=== PATIENT | female | born 1935 | race Caucasian/White ===

== ENCOUNTER 2018-04-15 08:34 | Emergency (ER) | payer MEDICARE, OTHER ==
[2018-04-15 08:48] VITALS: BP 167/85
--- NOTE | 2018-04-15 08:55 | EDM.PDOC ---
ED HPI GENERAL MEDICAL PROBLEM - General Chief Complaint: Cardiovascular Problem Stated Complaint: [facility] Time Seen by Provider: 04/15/18 08:54 - History of Present Illness INITIAL COMMENTS - FREE TEXT/NARRATIVE: 83-year-old female presents emergency room with lightheadedness. The patient has had on-and-off problems with this for almost last 2 years. She recently had her metoprolol long-acting stopped she was taking 25 mg in the morning and 25 mg at noon. She has not had any associated chest pain worsening edema or shortness of breath. The patient awoke. And she was a little unsteady her niece assisted her getting into a wheeled dining room table chair and she was wheeled out to the dining room she remained lightheaded. She was too weak to attempt standing on her own. She was brought into the emergency room she is not experiencing chest pain chest pressure breathing difficulties. - Related Data Allergies Allergy/AdvReac Type Severity Reaction Status Date / Time morphine AdvReac Vomiting Verified 04/15/18 08:52 Home Meds: Home Meds Albuterol Sulfate [Proventil Hfa] 6.7 gm IH Q4HR PRN 07/23/16 [History] LORazepam 1 mg PO BEDTIME PRN 07/23/16 [History] Losartan [Cozaar] 50 mg PO DAILY 07/23/16 [History] Melatonin 3 mg PO BEDTIME 07/23/16 [History] Sertraline [Zoloft] 100 mg PO BEDTIME 07/23/16 [History] Tiotropium [Spiriva HandiHaler] 18 mcg INH DAILY 07/23/16 [History] Lysine 500 mg PO BID 07/24/16 [History] Montelukast Sodium 10 mg PO BEDTIME 07/24/16 [History] Mv-Mn/FA/Vit K/Lycop/Lut/Zeaxa [Ocuvite Eye + Multi Tablet] 1 tab PO DAILY 07/24 [History] [place]-3/DHA/Epa/Fish Oil [Fish Oil 1,000 mg Softgel] 1,300 mg PO DAILY 07/24/16 [History] Primidone 50 mg PO DAILY 07/24/16 [History] Primidone 100 mg PO BEDTIME 07/24/16 [History] Albuterol [IJD: Albuterol] 2.5 mg NEB Q4HR PRN #120 nebule 07/28/16 [Rx] Aspirin 81 mg PO DAILY #30 tab.chew 07/28/16 [Rx] Ibuprofen [IJD: Ibuprofen] 600 mg PO Q6H PRN #0 tablet 07/28/16 [Rx] atorvaSTATin [Lipitor] 40 mg PO QPM 04/15/18 [History] buPROPion HCl [Wellbutrin Xl] 150 mg PO ASDIRECTED 04/15/18 [History] Past Medical History HEENT History: Reports: Cataract, Impaired Vision Other HEENT History: wears glasses Cardiovascular History: Reports: Hypertension, SOB on Exertion Respiratory History: Reports: COPD, SOB Other Respiratory History: left lower lobe removed. Benign. Musculoskeletal History: Reports: Arthritis Other Musculoskeletal History: arthritis in hands. Neurological History: Reports: Migraines Other Neuro History: years ago experienced migraines. Psychiatric History: Reports: Depression Oncologic (Cancer) History: Reports: Breast - Infectious Disease History Infectious Disease History: Reports: Chicken Pox, Measles, Mumps - Past Surgical History HEENT Surgical History: Reports: Cataract Surgery Female Surgical History: Reports: Hysterectomy, Mastectomy Oncologic Surgical History: Reports: Mastectomy Social & Family History - Family History Family Medical History: Noncontributory Oncologic: Reports: Other (See Below) Other Oncologic Family History: kidney cancer-dad. esophageal- sister - Tobacco Use Smoking Status *Q: Current Every Day Smoker Years of Tobacco use: 60 Packs/Tins Daily: 0.2 - Caffeine Use Caffeine Use: Reports: Coffee - Recreational Drug Use Recreational Drug Use: No ED ROS GENERAL - Review of Systems Review Of Systems: See Below Constitutional: Denies: Fever, Chills HEENT: Reports: Other (Lightheadedness). Denies: Ear Pain, Eye Discharge, Eye Pain, Hearing Loss, Throat Pain Respiratory: Reports: No Symptoms Cardiovascular: Reports: Other (Questionable near syncope 2 recent 48 hour Holter monitors have been negative according to the patient and family) Endocrine: Reports: Fatigue GI/Abdominal: Reports: No Symptoms : Reports: No Symptoms Musculoskeletal: Reports: No Symptoms Skin: Reports: No Symptoms Neurological: Reports: Other (Chronic intermittent lightheadedness) Psychiatric: Reports: No Symptoms ED EXAM, GENERAL - Physical Exam Exam: See Below Exam Limited By: No Limitations General Appearance: Alert, No Apparent Distress Eye Exam: Bilateral Eye: Normal Inspection, PERRL Ears: Normal External Exam, Normal Canal, Hearing Grossly Normal, Normal TMs Nose: Normal Inspection, Normal Mucosa, No Blood Throat/Mouth: Other (Normal exam dentures in place, semi-dry mucosa) Head: Atraumatic, Normocephalic Neck: Normal Inspection. No: Lymphadenopathy (L), Lymphadenopathy (R) Respiratory/Chest: No Respiratory Distress, Lungs Clear, Normal Breath Sounds Cardiovascular: Regular Rate, Rhythm, No Edema, No Murmur GI/Abdominal: Normal Bowel Sounds, Soft, Non-Tender, Pelvis Stable Back Exam: Normal Inspection. No: CVA Tenderness (L), CVA Tenderness (R) Extremities: Normal Inspection, No Pedal Edema Neurological: Alert, Oriented Psychiatric: Normal Affect Skin Exam: Warm, Dry, Intact EKG INTERPRETATION EKG Date: 04/15/18 Rhythm: NSR [place]: Normal P-Wave: Present QRS: Normal ST-T: Normal QT: Normal Comparison: Change From Previous EKG (QRS more prominent compared to June 2016 otherwise no significant changes) Course - Vital Signs Last Recorded V/S: Last Vital Signs Temp 36.9 C 04/15/18 08:43 Pulse 79 04/15/18 08:43 Resp 13 04/15/18 08:43 BP 167/85 H 04/15/18 08:43 Pulse Ox 96 04/15/18 08:43 - Orders/Labs/Meds Orders: Active Orders 24 hr Category Date Time Status EKG Documentation Completion [RC] STAT Care 04/15/18 09:09 Active Chest 1V Frontal [CR] Stat Exams 04/15/18 09:09 Taken CORTISOL [REF] Stat Lab 04/15/18 09:28 Received Labs: Laboratory Tests 04/15/18 04/15/18 Range/Units 09:28 09:28 WBC 8.33 (3.98-10.04) K/mm3 RBC 4.33 (3.98-5.22) M/mm3 Hgb 13.3 (11.2-15.7) gm/L Hct 39.6 (34.1-44.9) % MCV 91.5 (79.4-94.8) fl MCH 30.7 (25.6-32.2) pg MCHC 33.6 (32.2-35.5) g/dl RDW Std Deviation 42.2 (36.4-46.3) fL Plt Count 208 (182-369) K/mm3 MPV 10.2 (9.4-12.3) fl Neutrophils % (Manual) 75 H (40-60) % Band Neutrophils % 1 (0-10) % Lymphocytes % (Manual) 19 L (20-40) % Atypical Lymphs % 0 % Monocytes % (Manual) 1 L (2-10) % Eosinophils % (Manual) 4 (0.7-5.8) % Basophils % (Manual) 0 L (0.1-1.2) Platelet Estimate Adequate RBC Morph Comment Normal Sodium 131 L (136-145) mEq/L Potassium 4.9 (3.5-5.1) mEq/L Chloride 97 L (98-107) mEq/L Carbon Dioxide 29 (21-32) mEq/L Anion Gap 9.9 (5-15) BUN 11 (7-18) mg/dL Creatinine 0.8 (0.55-1.02) mg/dL Est Cr Clr Drug Dosing 49.88 mL/min Estimated GFR (MDRD) > 60 (>60) mL/min BUN/Creatinine Ratio 13.8 L (14-18) Glucose 102 (83-115) mg/dL Calcium 8.4 L (8.5-10.1) mg/dL Total Bilirubin 0.5 (0.2-1.0) mg/dL AST 25 (15-37) U/L ALT 15 (14-59) U/L Alkaline Phosphatase 47 (46-116) U/L Total Protein 7.2 (6.4-8.2) g/dl Albumin 3.9 (3.4-5.0) g/dl Globulin 3.3 gm/dL Albumin/Globulin Ratio 1.2 (1-2) Meds: Medications Discontinued Medications Generic Name Dose Route Start Last Admin Trade Name Freq PRN Reason Stop Dose Admin Sodium Chloride 500 mls @ 999 mls/hr 04/15/18 11:45 04/15/18 11:53 Normal Saline IV 04/15/18 12:15 999 mls/hr .BOLUS ONE Administration - Re-Assessments/Exams Free Text/Narrative Re-Assessment/Exam: 04/15/18 11:56 Labs reviewed should be given some NS anticipate discharge home. 04/15/18 13:15 Patient really hasn't noticed any significant improvement after the fluid bolus however her symptoms did resolve on their own prior to receiving this. Head CT is unremarkable workup thus far is unremarkable the patient will be discharged home Departure - Departure Time of Disposition: 13:15 Disposition: Home, Self-Care 01 Clinical Impression: Near syncope, Mild dehydration Referrals: Eugenio Diamond MD [Primary Care Provider] - Forms: ED Department Discharge Additional Instructions: Return to the emergency room with any questions problems worsening symptoms. Follow-up with your regular physician on Sunday or of this week. Consider event monitor. - My Orders Last 24 Hours: My Active Orders 04/15/18 09:09 EKG Documentation Completion [RC] STAT Chest 1V Frontal [CR] Stat 04/15/18 09:28 CORTISOL [REF] Stat - Assessment/Plan Last 24 Hours: My Active Orders 04/15/18 09:09 EKG Documentation Completion [RC] STAT Chest 1V Frontal [CR] Stat 04/15/18 09:28 CORTISOL [REF] Stat
--- NOTE | 2018-04-15 09:36 | CT ---
Head CT Technique: Multiple axial sections through the brain were obtained. Intravenous contrast was not utilized. Isidro: No prior head CT exam. Findings: Ventricles along the basal cisterns and sulci over convexities are moderately prominent. Mild diminished density is noted within the periventricular and subcortical white matter compatible with small vessel ischemic demyelination change. Several old appearing lacunar infarcts are identified within the basal ganglia. No acute fracture or other bony abnormality is seen. Atherosclerotic calcification is noted within the carotid siphon. Small retention cyst is incidentally noted within the right side of the sphenoid sinus. Under aerated right mastoid sinus is seen which is incidental. No acute calvarial abnormality is seen. Impression: 1. Senescent change as noted above. 2. Incidental sinus findings as described above. 3. Nothing acute is seen on noncontrast head CT study. Diagnostic code #2
[2018-04-15] MEDS ORDERED: Sodium Chloride 0.9% 500 ML IV ONE (11:45)
--- NOTE | 2018-04-15 14:50 | CR ---
Chest: AP view of the chest was obtained. Comparison: Prior chest x-ray of 07/26/16. Heart size is normal. Tortuous thoracic aorta is seen. Lungs are clear. Rib deformity is noted within the left upper chest compatible with previous surgery. Surgical clips are seen within the left axillary region. Scoliosis is present within the spine. Nodule is identified within the left lung base which is slightly obscured by monitor lead. This finding is not seen on prior chest CT of 07/23/[address] is recommended to further evaluate. Impression: 1. Nodule within the left lung base. Noncontrast chest CT recommended to further evaluate. 2. Other incidental findings. Diagnostic code #9
== END 2018-04-15 14:05 | disposition home or self-care (01) ==
LOC: JD.ED 08:34 → SUPCPDRO 08:34 → JD.ED 14:05
DX: E86.0 Dehydration (principal); I10 Essential (primary) hypertension; J44.9 Chronic obstructive pulmonary disease, unspecified; F32.9 Major depressive disorder, single episode, unspecified; F17.210 Nicotine dependence, cigarettes, uncomplicated; Z88.5 Allergy status to narcotic agent; Z79.899 Other long term (current) drug therapy; Z79.82 Long term (current) use of aspirin
CPT/HCPCS: 36415; 70450; 71045; 80053; 82533; 85007; 85027; 93005; 99285; J7040; 93010; 99283-25

== ENCOUNTER 2019-01-20 23:10 | Emergency (ER) | payer MEDICARE, OTHER ==
[2019-01-20 23:14] VITALS: BP 149/73
--- NOTE | 2019-01-20 23:36 | EDM.PDOC ---
ED HPI GENERAL MEDICAL PROBLEM - General Chief Complaint: Lower Extremity Injury/Pain Stated Complaint: [facility] Time Seen by Provider: 01/20/19 23:16 Source of Information: Reports: Patient, EMS History Limitations: Reports: No Limitations - History of Present Illness INITIAL COMMENTS - FREE TEXT/NARRATIVE: The patient presents by [facility] for left ankle injury and syncope. She was in her bed and she was not tired. So she got up to walk to he recliner and she passed out. She had swelling to her left ankle with minimal pain. She said she did wait on the side of her bed for about 4 minutes before taking off to go to the recliner. She has a history of syncope and cardiology and Dr Diamond have not found out why this is happening. She denies any headache or neck pain. She has no chest pain or shortness of breath. She has no fever, chills, or cough. She has no wrist pain or hip pain. Onset: Sudden Duration: Minutes: Location: Reports: Lower Extremity, Left (ankle) Quality: Reports: Ache Severity: Mild Improves with: Reports: Immobilization Worsens with: Reports: Movement Context: Reports: Trauma (she passed out) Associated Symptoms: Reports: No Other Symptoms Left Ankle Pain Score (Numeric/FACES): 6 - Related Data Allergies Allergy/AdvReac Type Severity Reaction Status Date / Time morphine AdvReac Vomiting Verified 04/15/18 08:52 Home Meds: Home Meds Albuterol Sulfate [Proventil Hfa] 6.7 gm IH Q4HR PRN 07/23/16 [History] LORazepam 1 mg PO BEDTIME PRN 07/23/16 [History] Losartan [Cozaar] 25 mg PO DAILY 07/23/16 [History] Sertraline [Zoloft] 100 mg PO BEDTIME 07/23/16 [History] Tiotropium [Spiriva HandiHaler] 18 mcg INH DAILY 07/23/16 [History] Lysine 500 mg PO BID 07/24/16 [History] Montelukast Sodium 10 mg PO BEDTIME 07/24/16 [History] Mv-Mn/FA/Vit K/Lycop/Lut/Zeaxa [Ocuvite Eye + Multi Tablet] 1 tab PO DAILY 07/24 [History] [place]-3/DHA/Epa/Fish Oil [Fish Oil 1,000 mg Softgel] 1,300 mg PO DAILY 07/24/16 [History] Primidone 50 mg PO DAILY 07/24/16 [History] Primidone 100 mg PO BEDTIME 07/24/16 [History] Albuterol [IJD: Albuterol] 2.5 mg NEB Q4HR PRN #120 nebule 07/28/16 [Rx] Aspirin 81 mg PO DAILY #30 tab.chew 07/28/16 [Rx] Ibuprofen [IJD: Ibuprofen] 600 mg PO Q6H PRN #0 tablet 07/28/16 [Rx] atorvaSTATin [Lipitor] 40 mg PO QPM 04/15/18 [History] buPROPion HCl [Wellbutrin Xl] 150 mg PO ASDIRECTED 04/15/18 [History] Denosumab [Prolia] 60 mg SUBCUT ASDIRECTED 01/20/19 [History] Past Medical History HEENT History: Reports: Cataract, Impaired Vision Other HEENT History: wears glasses Cardiovascular History: Reports: Hypertension, SOB on Exertion, Syncope Respiratory History: Reports: COPD, SOB Other Respiratory History: left lower lobe removed. Benign. Musculoskeletal History: Reports: Arthritis Other Musculoskeletal History: arthritis in hands. Neurological History: Reports: Migraines Other Neuro History: years ago experienced migraines. Psychiatric History: Reports: Depression Oncologic (Cancer) History: Reports: Breast Other Oncologic History: left breast - Infectious Disease History Infectious Disease History: Reports: Chicken Pox, Measles, Mumps - Past Surgical History HEENT Surgical History: Reports: Cataract Surgery Female Surgical History: Reports: Hysterectomy, Mastectomy Oncologic Surgical History: Reports: Mastectomy Social & Family History - Family History Family Medical History: Noncontributory Oncologic: Reports: Other (See Below) Other Oncologic Family History: kidney cancer-dad. esophageal- sister - Tobacco Use Smoking Status *Q: Current Every Day Smoker Years of Tobacco use: 67 Packs/Tins Daily: 0.5 - Caffeine Use Caffeine Use: Reports: Coffee - Recreational Drug Use Recreational Drug Use: No Review of Systems - Review of Systems Review Of Systems: See Below Constitutional: Reports: No Symptoms Eyes: Reports: No Symptoms Ears: Reports: No Symptoms Nose: Reports: No Symptoms Mouth/Throat: Reports: No Symptoms Respiratory: Reports: No Symptoms Cardiovascular: Reports: Syncope. Denies: Chest Pain, Lightheadedness GI/Abdominal: Reports: No Symptoms Genitourinary: Reports: No Symptoms Musculoskeletal: Reports: Other (Left ankle pain and swelling) ED EXAM, GENERAL - Physical Exam Exam: See Below Exam Limited By: No Limitations General Appearance: Alert, No Apparent Distress Ears: Normal External Exam Nose: Normal Inspection Head: Atraumatic, Normocephalic Neck: Normal Inspection Respiratory/Chest: No Respiratory Distress, Lungs Clear, Normal Breath Sounds Cardiovascular: Regular Rate, Rhythm, No Edema, No Murmur GI/Abdominal: Soft, Non-Tender, No Organomegaly, No Mass Extremities: Other (Mild edema to the lateral malleolus with mild pain upon palpation. Good sensation and pulses distally.) EKG INTERPRETATION EKG Date: 01/21/19 Time: 23:33 Rhythm: NSR Rate (Beats/Min): 80 [place]: Normal P-Wave: Present QRS: Normal ST-T: Normal QT: Normal Course - Vital Signs Last Recorded V/S: Last Vital Signs Temp 97.8 F 01/20/19 23:13 Pulse 84 01/20/19 23:13 Resp 20 01/20/19 23:13 BP 149/73 H 01/20/19 23:13 Pulse Ox 92 L 01/20/19 23:13 - Orders/Labs/Meds Orders: Active Orders 24 hr Category Date Time Status EKG Documentation Completion [RC] ASDIRECTED Care 01/20/19 23:26 Active Ankle Min 3V Lt [CR] Stat Exams 01/20/19 23:26 Taken EKG 12 Lead [EK] Stat Ther 01/20/19 23:25 Ordered - Re-Assessments/Exams Free Text/Narrative Re-Assessment/Exam: 01/20/19 23:37 I ordered an EKG and an x-ray of her ankle. The patient did not want any thing else done like labs or a CT of her head. 01/21/19 00:19 Her EKG shows a NSR with no acute changes. Her x-ray shows a distal fibular fracture and distal tibia fracture. It does not appear to be displaced. I will get her in a walking boot and see how she does. 01/21/19 00:36 My nurse got her up and she did okay with the walker. She would like to try it at home. I will have her call if it does not go well. Departure - Departure Time of Disposition: 00:40 Disposition: Home, Self-Care 01 Condition: Good Clinical Impression: Syncope Qualifiers: Syncope type: unspecified Qualified Code(s): R55 - Syncope and collapse Closed left ankle fracture Qualifiers: Encounter type: initial encounter Qualified Code(s): S82.892A - Other fracture of left lower leg, initial encounter for closed fracture - Discharge Information *PRESCRIPTION DRUG MONITORING PROGRAM REVIEWED*: Not Applicable *COPY OF PRESCRIPTION DRUG MONITORING REPORT IN PATIENT TOMMY: Not Applicable Referrals: Eugenio Diamond MD [Primary Care Provider] - Frederick Balderrama MD [Physician] - 1 Week Forms: ED Department Discharge Additional Instructions: Ice your ankle for 15 minutes every other hour while awake for 2 days. Try to elevate your ankle as much as you can for 2 days. Take tylenol or motrin for pain. Follow up with Dr Balderrama. Please return if you are worse. If you have any questions or concerns please call [phone]. - My Orders Last 24 Hours: My Active Orders 01/20/19 23:25 EKG 12 Lead [EK] Stat 01/20/19 23:26 EKG Documentation Completion [RC] ASDIRECTED Ankle Min 3V Lt [CR] Stat - Assessment/Plan Last 24 Hours: My Active Orders 01/20/19 23:25 EKG 12 Lead [EK] Stat 01/20/19 23:26 EKG Documentation Completion [RC] ASDIRECTED Ankle Min 3V Lt [CR] Stat
--- NOTE | 2019-01-21 07:33 | CR ---
Left ankle: Four views of the left ankle were obtained. Comparison: No previous study. Fracture is identified within the lateral malleolus. Minimal displacement is seen. Fracture is also identified within the medial malleolus which appears within normal in alignment. Posterior malleolus is intact. Incidental plantar spur is seen. Minimal calcifications are noted within the distal Achilles tendon. Soft tissue swelling is noted. Impression: 1. Bimalleolar fracture. Soft tissue swelling. 2. Incidental calcaneal spurs. Diagnostic code #3
== END 2019-01-21 00:45 | disposition home or self-care (01) ==
LOC: SUPCPDRO 23:10 → JD.ED 23:10
DX: R55 Syncope and collapse (principal); S82.842A Displaced bimalleolar fracture of left lower leg, initial encounter for closed fracture; I10 Essential (primary) hypertension; F32.9 Major depressive disorder, single episode, unspecified; F17.210 Nicotine dependence, cigarettes, uncomplicated; Z88.5 Allergy status to narcotic agent; Z79.899 Other long term (current) drug therapy; Z79.82 Long term (current) use of aspirin; Z98.49 Cataract extraction status, unspecified eye; Z90.710 Acquired absence of both cervix and uterus; W19.XXXA Unspecified fall, initial encounter
CPT/HCPCS: 73610-26-LT; 73610-LT; 93005; 93010; 99283; 99283-25

== ENCOUNTER 2021-03-16 10:27 | Day surgery (SDC) | payer MEDICARE, OTHER ==
[2021-03-16] MEDS ORDERED: Lidocaine 1%/Sod Bicarbonate in NS 8.4% 1 ML Syringe IDERM PRN (11:00)
[2021-03-16] MEDS ORDERED: Albuterol 0.083% 2.5 MG/3 ML Neb Soln NEB SCH (11:00)
[2021-03-16] MEDS ORDERED: Lactated Ringers 1,000 ML IV SCH (11:00)
[2021-03-16] MEDS ORDERED: fentaNYL 100 MCG/2 ML SDV ONE (11:17)
[2021-03-16] MEDS ORDERED: Propofol 200 MG/20 ML SDV ONE ×2 (11:17→13:58)
[2021-03-16] MEDS ORDERED: Lidocaine 1% 4 ML ONE (11:21)
--- NOTE | 2021-03-16 11:21 | PCM.PREANE ---
Preanesthetic Assessment - Procedure Proposed Procedure: EGD and Colonoscopy - Anesthesia/Transfusion/Family Hx Anesthesia History: Prior Anesthesia Without Reaction Family History of Anesthesia Reaction: No Transfusion History: No Prior Transfusion(s) Intubation History: Unknown - Review of Systems General: No Symptoms Pulmonary: No Symptoms (COPD: 5-10 cigarettes per day 70 yrs.) Cardiovascular: No Symptoms (Elevated cholesterol, HTN, CAD, PVC's, orthostatic hypotension), Dyspnea on Exertion, Lightheadedness Gastrointestinal: No Symptoms Neurological: No Symptoms (history of breast cancer/chronic lower back pain) Other: Reports: Easy Bruising, Neck Pain, Depression, Anxiety - Physical Assessment NPO Status Date: 03/15/21 NPO Status Time: 23:00 Vital Signs: Last Vital Signs Temp 36.6 C 03/16/21 10:44 Pulse 72 03/16/21 10:44 Resp 22 H 03/16/21 10:44 BP 206/83 H 03/16/21 11:03 Pulse Ox 96 03/16/21 10:44 Height: 1.65 m Weight: 49 kg ASA Class: 3 Mental Status: Alert & Oriented x3 Airway Class: Mallampati = 2 Dentition: Reports: Dentures (upper), Missing Tooth/Teeth, Caries Thyro-Mental Finger Breadths: 3 Mouth Opening Finger Breadths: 3 ROM/Head Extension: Limited/Partial Lungs: Clear to Auscultation, Normal Respiratory Effort, Decreased Breath Sounds, Rhonchi Cardiovascular: Regular Rate, Regular Rhythm, No Murmurs - Lab Values: All labs reviewed and noted and within acceptable ranges to proceed with scheduled procedure. - Imaging/EKG Impressions: EKG: (2019) SR rate=83 CXR: (2019) slight hyperinflation otherwise negative - Allergies Allergies/Adverse Reactions: Allergies Allergy/AdvReac Type Severity Reaction Status Date / Time morphine AdvReac Vomiting Verified 04/15/18 08:52 - Anesthesia Plan Pre-Op Medication Ordered: None - Acknowledgements Anesthesia Type Planned: MAC Pt an Appropriate Candidate for the Planned Anesthesia: Yes Alternatives and Risks of Anesthesia Discussed w Pt/Guardian: Yes Pt/Guardian Understands and Agrees with Anesthesia Plan: Yes PreAnesthesia Questionnaire HEENT History: Reports: Cataract, Impaired Vision Other HEENT History: wears glasses Cardiovascular History: Reports: Hypertension, SOB on Exertion, Syncope Respiratory History: Reports: COPD, SOB Other Respiratory History: left lower lobe removed. Benign. Musculoskeletal History: Reports: Arthritis Other Musculoskeletal History: arthritis in hands. Neurological History: Reports: Migraines Other Neuro History: years ago experienced migraines. Psychiatric History: Reports: Depression Oncologic (Cancer) History: Reports: Breast Other Oncologic History: left breast - Infectious Disease History Infectious Disease History: Reports: Chicken Pox, Measles, Mumps - Past Surgical History HEENT Surgical History: Reports: Cataract Surgery Female Surgical History: Reports: Hysterectomy, Mastectomy Oncologic Surgical History: Reports: Mastectomy - HOME MEDS Home Medications: Home Meds Albuterol Sulfate [Proventil Hfa] 6.7 gm IH Q4HR PRN 07/23/16 [History] LORazepam 1 mg PO BEDTIME PRN 07/23/16 [History] Losartan [Cozaar] 25 mg PO DAILY 07/23/16 [History] Sertraline [Zoloft] 100 mg PO BEDTIME 07/23/16 [History] Tiotropium [Spiriva HandiHaler] 18 mcg INH DAILY 07/23/16 [History] Lysine 500 mg PO BID 07/24/16 [History] Montelukast Sodium 10 mg PO BEDTIME 07/24/16 [History] Mv-Mn/FA/Vit K/Lycop/Lut/Zeaxa [Ocuvite Eye + Multi Tablet] 1 tab PO DAILY 07/24/16 [History] [place]-3/DHA/Epa/Fish Oil [Fish Oil 1,000 mg Softgel] 1,300 mg PO DAILY 07/24/16 [History] Primidone 50 mg PO DAILY 07/24/16 [History] Primidone 100 mg PO BEDTIME 07/24/16 [History] Albuterol [IJD: Albuterol] 2.5 mg NEB Q4HR PRN #120 nebule 07/28/16 [Rx] Aspirin 81 mg PO DAILY #30 tab.chew 07/28/16 [Rx] Ibuprofen [IJD: Ibuprofen] 600 mg PO Q6H PRN #0 tablet 07/28/16 [Rx] atorvaSTATin [Lipitor] 40 mg PO QPM 04/15/18 [History] buPROPion HCL [Wellbutrin Xl] 150 mg PO ASDIRECTED 04/15/18 [History] Denosumab [Prolia] 60 mg SUBCUT ASDIRECTED 01/20/19 [History]
[2021-03-16] MEDS ORDERED: fentaNYL 100 MCG/2 ML SDV IVPUSH SCH (11:24)
[2021-03-16] MEDS ORDERED: Sodium Chloride 0.9% 10 ML Syringe FLUSH PRN (11:26)
[2021-03-16] MEDS ORDERED: Albuterol 0.083% 2.5 MG/3 ML Neb Soln ONE (11:33)
--- NOTE | 2021-03-16 14:44 | PCM48HPAN ---
Post Anesthesia Note - EVALUATION WITHIN 48HRS OF ANESTHETIC Vital Signs in Normal Range: Yes Patient Participated in Evaluation: Yes Respiratory Function Stable: Yes Airway Patent: Yes Cardiovascular Function Stable: Yes Hydration Status Stable: Yes Pain Control Satisfactory: Yes Nausea and Vomiting Control Satisfactory: Yes Mental Status Recovered: Yes Vital Signs: Last Vital Signs Temp 36.6 C 03/16/21 10:44 Pulse 80 03/16/21 13:00 Resp 22 H 03/16/21 12:55 BP 185/87 H 03/16/21 13:00 Pulse Ox 95 03/16/21 12:55
--- NOTE | 2021-03-16 14:49 | PCM.OPNOTE ---
- General Post-Op/Procedure Note Date of Surgery/Procedure: 03/16/21 Operative Procedure(s): EGD and colonoscopy Findings: 1. Gastritis 2. Duodenitis 3. Hiatal hernia 4. Irregular GE junction 5. Ascending colon mass 6. Ascending colon polyps x3 7. Hepatic flexure polyps x9 8. Transverse colon polyp x2 9. Multiple polyps in the transverse and descending colon - not removed Pre Op Diagnosis: Anemia Post-Op Diagnosis: same Anesthesia Technique: [facility] [place]geon: Claribel Milan Anesthesia Provider: Chandrika Valverde Pathology: 1. Gastritic antrum biopsies 2. Duodenal biopsies 3. Greater curvature gastric polyps 4. Irregular GE junction biopsies 5. Ascending colon mass biopsies 6. Ascending colon polyps x3 7. Hepatic flexure polyps x9 8. Transverse colon polyp x2 Fluid Replacement, Intraop: 1,100 Output, Urine Amount: 0 EBL in mLs: 0 Complications: none apparent Condition: Good
--- NOTE | 2021-03-16 14:52 | PCM.PRNOTE ---
- Free Text/Narrative Note: Operative Report Date of Procedure: March 16, 2021 Pre Op Diagnosis: Anemia Post-Op Diagnosis: Anemia Operative Procedures: 1. EGD with biopsy 2. Colonoscopy to the cecum with biopsy and polypectomy Primary Surgeon: Claribel Milan MD Anesthesia Provider: Chandrika Valverde CRNA and Britney Stark CRNA Anesthesia Technique: MAC IV Fluid Replacement, Intraop: 1100cc crystalloid Output, Urine Amount: 0cc EBL in mLs: 0cc Findings: 1. Gastritis 2. Duodenitis 3. Hiatal hernia 4. Irregular GE junction 5. Ascending colon mass 6. Ascending colon polyps x3 7. Hepatic flexure polyps x9 8. Transverse colon polyp x2 9. Multiple polyps in the transverse and descending colon - not removed Specimens: 1. Gastritic antrum biopsies 2. Duodenal biopsies 3. Greater curvature gastric polyps 4. Irregular GE junction biopsies 5. Ascending colon mass biopsies 6. Ascending colon polyps x3 7. Hepatic flexure polyps x9 8. Transverse colon polyp x2 Drain/Tubes: None Indication: The patient is an 86-year-old lady who presented to the clinic with findings of anemia. The patient was consented for a diagnostic EGD and colonoscopy. Risks of bleeding, and perforation were discussed, and the patient agreed to the risks and wished to proceed. Description of the procedure: The patient was taken back to the endoscopy suite, and placed in the left lateral decubitus position. A bite block was placed. The patient was sedated with MAC anesthesia. The Olympus video endoscope was inserted into the oropharynx and guided under direct vision into the esophagus, stomach, and duodenum. The duodenal bulb and second portion of the duodenum were remarkable for duodenitis and healing erosions; biopsies were taken using a cold biopsy forceps. The gastric antrum was inspected and cold biopsy forceps were used to take tissue samples for H. pylori. The scope was withdrawn to the stomach and retroflexed. There was no increased fluid, food or secretions in the upper gastrointestinal tract. There were diffuse, patchy, erythematous changes. Biopsies were also taken along the greater curvature. No erosions or ulcers were noted. The scope was withdrawn to the esophagus. A this point we noted a hiatal hernia. There was irregular Z-line changes, and this was biopsied using a cold biopsy forceps in four quadrants. The endoscope was then withdrawn. Next, anorectal examination was performed. No lesions, masses or hemorrhoids were noted externally or on palpation. The scope was placed into the rectum and advanced to the proximal ascending colon where an obstructing lesion was noted. This was a circumferential involvement of the tissue with a partial obstruction. The scope was not able to be passed through this area. This mass was biopsied using a cold biopsy forceps. There were two sessile polyps 7-10mm noted in this area that were not removed. The polyps and mass were then marked with a tattoo of leonela ink. The scope was withdrawn to the ascending colon. An 8mm semi- sessile polyp was partially removed with a hot snare, the snared portion was not retrieved. The remaining was removed with a jumbo cold biopsy forceps. Two additional 7-9mm sessile polyps were removed with a jumbo cold biopsy forceps from the ascending colon. Nine semi-sessile polyps ranging from 4-10mm were removed from the hepatic flexure using a jumbo cold biopsy forceps. Two transverse colon polyps, sessile and measuring 10-12mm were removed with a jumbo cold biopsy forceps. Additional polyps were noted in the transverse and descending colon that were not removed during the procedure due to the high number of polyps removed. The patient had adequate bowel prep. In the rectum, scope was retroflexed and some hemorrhoidal tissue was noted. The scope was placed back in the lumen and excess air was aspirated. The scope was removed. The patient tolerated the procedure very well. Complications: None apparent Condition: The patient was transported to PACU in stable condition. Claribel Milan MD General Surgery
[2021-03-16 15:16] VITALS: BP 182/88; PULSE 77
== END 2021-03-16 15:52 | disposition home or self-care (01) ==
LOC: JD.SDS 10:27
PROVIDERS: ATTEND Surgery
DX: D12.3 Benign neoplasm of transverse colon (principal); K52.9 Noninfective gastroenteritis and colitis, unspecified; D12.2 Benign neoplasm of ascending colon; K31.89 Other diseases of stomach and duodenum; K44.9 Diaphragmatic hernia without obstruction or gangrene; D50.9 Iron deficiency anemia, unspecified; K22.8 Other specified diseases of esophagus; K31.7 Polyp of stomach and duodenum; K29.50 Unspecified chronic gastritis without bleeding; K29.80 Duodenitis without bleeding; J44.9 Chronic obstructive pulmonary disease, unspecified; I10 Essential (primary) hypertension; E78.2 Mixed hyperlipidemia; I25.10 Atherosclerotic heart disease of native coronary artery without angina pectoris; Z98.890 Other specified postprocedural states; Z79.899 Other long term (current) drug therapy; Z79.82 Long term (current) use of aspirin; Z88.5 Allergy status to narcotic agent; Z87.891 Personal history of nicotine dependence
CPT/HCPCS: 43239; 45380; 45381; 45385; 94640; J2704; J3010; J7120; 00813; 99100

== ENCOUNTER 2022-04-23 16:33 | Inpatient (IN) | payer MEDICARE, OTHER ==
[2022-04-23] MEDS ORDERED: Benzonatate 100 MG Cap PO ONE (16:41)
[2022-04-23] MEDS ORDERED: Sodium Chloride 0.9% 1,000 ML IV SCH (16:45)
[2022-04-23] MEDS ORDERED: Acetaminophen 325 MG Tab PO ONE (18:21)
[2022-04-23 19:07] LABS: CORONAVIRUS COVID-19 NAA NEGATIVE (NEGATIVE)
[2022-04-23] MEDS ORDERED: Albuterol/Ipratropium 3.0-0.5 MG/3 ML Neb Soln NEB PRN (19:39)
[2022-04-23] MEDS ORDERED: cefTRIAXone 2 GM in Sodium Chloride 0.9% 100 ML IV ONE (20:07)
[2022-04-23] MEDS ORDERED: LORazepam 1 MG Tab PO PRN (21:38)
[2022-04-23] MEDS ORDERED: Albuterol 0.083% 2.5 MG/3 ML Neb Soln NEB PRN (21:41)
[2022-04-23] MEDS: Primidone 50 MG Tab PO SCH (22:06)
[2022-04-23] MEDS: Sertraline 50 MG Tab PO SCH (22:07)
[2022-04-23] MEDS: Azithromycin 500 MG in Sodium Chloride 0.9% 250 ML IV SCH (22:07)
[2022-04-23] MEDS: predniSONE 10 MG Tab PO SCH (22:07)
[2022-04-23] MEDS: Sodium Chloride 0.9% 1,000 ML IV SCH (22:07)
[2022-04-24] MEDS: predniSONE 10 MG Tab PO SCH (06:01)
[2022-04-24] MEDS: Albuterol/Ipratropium 3.0-0.5 MG/3 ML Neb Soln NEB SCH ×4 (08:23→20:42)
[2022-04-24] MEDS: Metoprolol Tartrate 25 MG Tab PO SCH ×2 (08:46→20:01)
[2022-04-24] MEDS: Primidone 50 MG Tab PO SCH ×2 (08:46→20:01)
[2022-04-24] MEDS: Losartan 25 MG Tab PO SCH (08:46)
[2022-04-24] MEDS: Aspirin 81 MG Tab.EC PO SCH (08:46)
[2022-04-24] MEDS: Enoxaparin 30 MG/0.3 ML Syringe SUBCUT SCH (08:46)
[2022-04-24] MEDS ORDERED: Magnesium Sulfate/Water 2 GM/50 ML BAG IV ONE (11:00)
[2022-04-24] MEDS: atorvaSTATin 40 MG Tab PO SCH (17:34)
[2022-04-24] MEDS: Sodium Chloride 0.9% 1,000 ML IV SCH (18:17)
[2022-04-24] MEDS: Sertraline 50 MG Tab PO SCH (20:01)
[2022-04-24] MEDS: Montelukast 10 MG Tab PO SCH (20:02)
[2022-04-24] MEDS: Azithromycin 500 MG in Sodium Chloride 0.9% 250 ML IV SCH ×2 (20:02→20:59)
[2022-04-24] MEDS: cefTRIAXone 2 GM in Sodium Chloride 0.9% 100 ML IV SCH (20:02)
[2022-04-25] MEDS ORDERED: Acetaminophen 325 MG Tab PO PRN (02:25)
[2022-04-25] MEDS: Albuterol/Ipratropium 3.0-0.5 MG/3 ML Neb Soln NEB SCH ×4 (03:30→20:47)
[2022-04-25] MEDS: predniSONE 10 MG Tab PO SCH (06:07)
[2022-04-25] MEDS: Metoprolol Tartrate 25 MG Tab PO SCH ×2 (08:51→21:23)
[2022-04-25] MEDS: Enoxaparin 30 MG/0.3 ML Syringe SUBCUT SCH (08:51)
[2022-04-25] MEDS: Losartan 25 MG Tab PO SCH (08:51)
[2022-04-25] MEDS: Primidone 50 MG Tab PO SCH ×2 (08:51→21:22)
[2022-04-25] MEDS: Aspirin 81 MG Tab.EC PO SCH (08:51)
[2022-04-25] MEDS: Sodium Chloride 0.9% 1,000 ML IV SCH (13:22)
[2022-04-25] MEDS: atorvaSTATin 40 MG Tab PO SCH (18:20)
[2022-04-25] MEDS: cefTRIAXone 2 GM in Sodium Chloride 0.9% 100 ML IV SCH (21:21)
[2022-04-25] MEDS: Sertraline 50 MG Tab PO SCH (21:22)
[2022-04-25] MEDS: Montelukast 10 MG Tab PO SCH (21:22)
[2022-04-25] MEDS: Azithromycin 500 MG in Sodium Chloride 0.9% 250 ML IV SCH (21:54)
[2022-04-26] MEDS: Albuterol/Ipratropium 3.0-0.5 MG/3 ML Neb Soln NEB SCH ×2 (03:21→09:48)
[2022-04-26] MEDS: Primidone 50 MG Tab PO SCH (08:58)
[2022-04-26] MEDS: Aspirin 81 MG Tab.EC PO SCH (08:58)
[2022-04-26] MEDS: Metoprolol Tartrate 25 MG Tab PO SCH (08:58)
[2022-04-26] MEDS: Losartan 25 MG Tab PO SCH (08:59)
[2022-04-26] MEDS ORDERED: Enoxaparin 40 MG/0.4 ML Syringe SUBCUT SCH (09:00)
[2022-04-26] MEDS ORDERED: predniSONE 5 MG Tab PO ONE (09:00)
[2022-04-26] MEDS: Sodium Chloride 0.9% 1,000 ML IV SCH (09:03)
[2022-04-26] MEDS ORDERED: guaiFENesin 600 MG Tab.ER PO SCH (09:50)
[2022-04-26 13:38] VITALS: BP 152/79; PULSE 86
[2022-04-27] MEDS ORDERED: predniSONE 10 MG Tab PO ONE (09:00)
[2022-04-28] MEDS ORDERED: predniSONE 5 MG Tab PO ONE (09:00)
== END 2022-04-26 14:10 | DRG 190 ==
LOC: JD.ED 16:33 → JD.MS 20:16
PROVIDERS: ADMIT Internal Medicine; ATTEND Internal Medicine
DX: J44.0 Chronic obstructive pulmonary disease with (acute) lower respiratory infection (principal); I50.33 Acute on chronic diastolic (congestive) heart failure; J06.9 Acute upper respiratory infection, unspecified; E87.1 Hypo-osmolality and hyponatremia; N30.01 Acute cystitis with hematuria; N10 Acute pyelonephritis; I13.0 Hypertensive heart and chronic kidney disease with heart failure and stage 1 through stage 4 chronic kidney disease, or unspecified chronic kidney disease; J44.1 Chronic obstructive pulmonary disease with (acute) exacerbation; J20.9 Acute bronchitis, unspecified; Z20.822 Contact with and (suspected) exposure to COVID-19; Z85.3 Personal history of malignant neoplasm of breast; Z88.8 Allergy status to other drugs, medicaments and biological substances; E86.0 Dehydration; F32.A Depression, unspecified; G43.909 Migraine, unspecified, not intractable, without status migrainosus; K59.09 Other constipation; M19.90 Unspecified osteoarthritis, unspecified site; N18.32 Chronic kidney disease, stage 3b; J84.10 Pulmonary fibrosis, unspecified; Z88.5 Allergy status to narcotic agent; Z79.82 Long term (current) use of aspirin; Z79.899 Other long term (current) drug therapy; Z87.891 Personal history of nicotine dependence; Z98.49 Cataract extraction status, unspecified eye; Z90.710 Acquired absence of both cervix and uterus
CPT/HCPCS: 0240U; 36415; 36600; 71045; 71046; 80048; 80053; 81001; 82272; 82553; 82803; 83735; 83880; 84484; 85025; 85027; 85610; 85730; 86140; 87040; 87086; 87088; 87186; 87641; 93005; 94640; 94760; 94761; 94762; 96360; 96361; 97162; 97530; 99285; A9270-GY; J0456; J0696; J1650; J3475; J7030; J7050; J7512; J7620-GY; U0002